=== PATIENT | male | born 1970 | race Caucasian/White ===

== ENCOUNTER 2017-06-21 11:50 | Inpatient (IN) | payer BC ==
[2017-06-21] MEDS ORDERED: NS 1,000 ML IV ONE (12:33)
[2017-06-21 12:36] LABS: PLATELET COUNT 181 10^3/uL (150-400)
--- NOTE | 2017-06-21 12:58 | EDPHY ---
H & P Time Seen by Provider: 06/21/17 12:41 HPI/ROS: CHIEF COMPLAINT: Nausea and vomiting HISTORY OF PRESENT ILLNESS: Patient is insulin-dependent diabetes and started getting sick yesterday with nausea and he vomited twice. His also said his eyes looked yellow yesterday. He only drinks occasional alcohol and had 2 drinks a week ago Saturday but nothing since. He presents with nausea and a feeling of his heart is racing. Not associated with severe abdominal pain but a little bit of cramping. No diarrhea. No fever. No hematemesis or coffee-ground emesis. REVIEW OF SYSTEMS: Eye: no change in vision ENT: no sore throat Cardiac: no chest pain or syncope Pulmonary: no cough or SOB Abdomen: HPI Musculoskeletal: no back pain Skin: HPI Neuro: no headache Constitutional: no fever : no urinary symptoms A comprehensive 10 point review of systems is otherwise negative aside from elements mentioned in the history of present illness. PAST MEDICAL HISTORY: Insulin-dependent diabetes Social history: Occasional alcohol only, General Appearance: Alert and conversant, cooperative. Eyes: Icteric ENT, Mouth: Dry mucous membranes Respiratory: Normal respiratory effort, breath sounds equal, lungs are clear to auscultation. Cardiovascular: Regular rate and rhythm. Tachycardic, 1/6 systolic murmur. Gastrointestinal: Abdomen is soft and non tender. Neurological: Alert, face symmetric, normal motor and sensory in extremities. Skin: Mild jaundice. Musculoskeletal: No peripheral edema. Psychiatric: Not agitated. Emergency Department course/MDM: Patient presents clinically dry and tachycardic with elevated glucose to 267 today. He also appears jaundiced, concern for liver disease. IV fluid resuscitation ordered 1 L, packed red blood cells 1 U ordered for severe anemia. Possible hemolysis with elevated bilirubin. Admission ICU with hematology consult. Does not appear to have ketoacidosis, does not have significant acidosis on PH. 1330:l discussed with Jamarcus, do not transfuse until he looks at the smear, possible hemolysis. 1342: [place] here, echo ordered. Smoking Status: Never smoked Constitutional: Initial Vital Signs Temperature (C) 36.7 C 06/21/17 11:52 Heart Rate 128 H 06/21/17 11:52 Respiratory Rate 16 06/21/17 11:52 Blood Pressure 153/92 H 06/21/17 11:52 O2 Sat (%) 99 06/21/17 11:52 O2 Delivery Mode Room Air Allergies/Adverse Reactions: Penicillins Allergy (Verified 06/21/17 13:32) Unknown Home Medications: Medication Instructions Recorded Atorvastatin Calcium [Lipitor 20 20 mg PO DAILY 06/21/17 mg (*)] Insulin Aspart [novoLOG] 0 - 14 unit SQ TIDMEAL 06/21/17 Insulin Glargine,Hum.rec.anlog 32 unit SQ HS 06/21/17 [Hortencia Ivonejillian] Medical Decision Making - Diagnostics EKG Interpretation: 12-lead EKG interpreted by me; official reading is in trace master. My interpretation is sinus tachycardia rate 125 Consult/Admit Bed Type: [facility] Critical Care Time: Critical care time spent by me, Dr. Bauer, exclusively with the care of this patient was 30 minutes, exclusive of PA or PERSONAL COMPUTER NETWORK ANALYST time and exclusive of separate procedures. The organ system at risk was hematologic and I ordered blood transfusion, fluid resuscitate patient, consultation with membership advisor, ICU admission to stabilize the patient and prevent worsening of the patient's condition. - Data Points Laboratory Results: Laboratory Results 06/21/17 12:25 06/21/17 12:25 06/21/17 06/21/17 06/21/17 13:05 12:25 12:25 WBC RBC Hgb POC Hgb Hct POC Hct MCV MCH MCHC RDW Plt Count MPV Neut % (Auto) Lymph % (Auto) Giles % (Auto) Eos % (Auto) Baso % (Auto) Nucleat RBC Rel Count Absolute Neuts (auto) Absolute Lymphs (auto) Absolute Monos (auto) Absolute Eos (auto) Absolute Basos (auto) Absolute Nucleated RBC Immature Gran % Immature Gran # Platelet Estimate Polychromasia Spherocytes Smear Review By Absolute Retic Percent Retic Corrected Retic Count PT 13.8 SEC SEC (12.0-15.0) INR 1.04 (0.83-1.16) APTT 22.9 SEC L SEC (23.0-38.0) VBG pH POC Sodium Sodium POC Potassium Potassium POC Chloride Chloride Carbon Dioxide Anion Gap POC BUN BUN Creatinine POC Creatinine Estimated GFR Glucose POC Glucose Calcium Total Bilirubin Conjugated Bilirubin Unconjugated Bilirubin AST ALT Alkaline Phosphatase Ammonia Lactate Dehydrogenase 1050 IU/L H IU/L (313-618) Total Protein Albumin Patient ABO/Rh A POSITIVE Antibody Screen POSITIVE Antibody Identification UNDETERMINED PRASHANTH, IgG Specific IGG POSITIVE (NEGATIVE) PRASHANTH, Polyspecific POSITIVE H (NEGATIVE) Crossmatch IS Only See Detail 06/21/17 06/21/17 06/21/17 12:25 12:25 12:25 WBC RBC Hgb POC Hgb Hct POC Hct MCV MCH MCHC RDW Plt Count MPV Neut % (Auto) Lymph % (Auto) Giles % (Auto) Eos % (Auto) Baso % (Auto) Nucleat RBC Rel Count Absolute Neuts (auto) Absolute Lymphs (auto) Absolute Monos (auto) Absolute Eos (auto) Absolute Basos (auto) Absolute Nucleated RBC Immature Gran % Immature Gran # Platelet Estimate Polychromasia Spherocytes Smear Review By Absolute Retic Percent Retic Corrected Retic Count PT INR APTT VBG pH 7.34 (7.31-7.42) POC Sodium Sodium 136 mEq/L mEq/L (135-145) POC Potassium Potassium 4.3 mEq/L mEq/L (3.5-5.2) POC Chloride Chloride 104 mEq/L mEq/L (97-110) Carbon Dioxide 19 mEq/l L mEq/l (22-31) Anion Gap 13 mEq/L mEq/L (8-16) POC BUN BUN 21 mg/dL mg/dL (7-23) Creatinine 0.8 mg/dL mg/dL (0.7-1.3) POC Creatinine Estimated GFR > 60 Glucose 272 mg/dL H mg/dL (70-100) POC Glucose Calcium 9.0 mg/dL mg/dL (8.5-10.4) Total Bilirubin 8.0 mg/dL H mg/dL (0.1-1.4) Conjugated Bilirubin 1.2 mg/dL H mg/dL (0.0-0.5) Unconjugated Bilirubin 6.8 mg/dL H mg/dL (0.0-1.1) AST 34 IU/L IU/L (17-59) ALT 46 IU/L IU/L (21-72) Alkaline Phosphatase 82 IU/L IU/L (38-126) Ammonia < 9.0 uMOL/L L uMOL/L (9.0-30.0) Lactate Dehydrogenase Total Protein 6.4 g/dL g/dL (6.3-8.2) Albumin 4.1 g/dL g/dL (3.5-5.0) Patient ABO/Rh Antibody Screen Antibody Identification PRASHANTH, IgG Specific PRASHANTH, Polyspecific Crossmatch IS Only 06/21/17 06/21/17 12:25 12:21 WBC 6.21 10^3/uL 10^3/uL (3.80-9.50) RBC 2.30 10^6/uL L 10^6/uL (4.40-6.38) Hgb 6.9 g/dL L g/dL (13.7-17.5) POC Hgb 6.8 gm/dL L gm/dL (13.7-17.5) Hct 20.6 % L % (40.0-51.0) POC Hct 20 % L % (40-51) MCV 89.6 fL fL (81.5-99.8) MCH 30.0 pg pg (27.9-34.1) MCHC 33.5 g/dL g/dL (32.4-36.7) RDW 13.1 % % (11.5-15.2) Plt Count 181 10^3/uL 10^3/uL (150-400) MPV 9.4 fL fL (8.7-11.7) Neut % (Auto) 80.9 % H % (39.3-74.2) Lymph % (Auto) 9.2 % L % (15.0-45.0) Giles % (Auto) 7.2 % % (4.5-13.0) Eos % (Auto) 1.0 % % (0.6-7.6) Baso % (Auto) 0.3 % % (0.3-1.7) Nucleat RBC Rel Count 0.0 % % (0.0-0.2) Absolute Neuts (auto) 5.02 10^3/uL 10^3/uL (1.70-6.50) Absolute Lymphs (auto) 0.57 10^3/uL L 10^3/uL (1.00-3.00) Absolute Monos (auto) 0.45 10^3/uL 10^3/uL (0.30-0.80) Absolute Eos (auto) 0.06 10^3/uL 10^3/uL (0.03-0.40) Absolute Basos (auto) 0.02 10^3/uL 10^3/uL (0.02-0.10) Absolute Nucleated RBC 0.00 10^3/uL 10^3/uL (0-0.01) Immature Gran % 1.4 % H % (0.0-1.1) Immature Gran # 0.09 10^3/uL 10^3/uL (0.00-0.10) Platelet Estimate Pending Polychromasia 2+ H Spherocytes 2+ H Smear Review By Tyron WANG MD Absolute Retic 0.128 10^6/uL H 10^6/uL (0.050-0.117) Percent Retic 5.41 % H % (0.98-2.67) Corrected Retic Count 2.5 % % (0.6-2.6) PT INR APTT VBG pH POC Sodium 136 mEq/L mEq/L (135-145) Sodium POC Potassium 4.0 mEq/L mEq/L (3.3-5.0) Potassium POC Chloride 102 mEq/L mEq/L (97-110) Chloride Carbon Dioxide Anion Gap POC BUN 22 mg/dL mg/dL (7-23) BUN Creatinine POC Creatinine 0.8 mg/dL mg/dL (0.7-1.3) Estimated GFR Glucose POC Glucose 283 mg/dL H mg/dL (70-100) Calcium Total Bilirubin Conjugated Bilirubin Unconjugated Bilirubin AST ALT Alkaline Phosphatase Ammonia Lactate Dehydrogenase Total Protein Albumin Patient ABO/Rh Antibody Screen Antibody Identification PRASHANTH, IgG Specific PRASHANTH, Polyspecific Crossmatch IS Only Medications Given: Discontinued Medications Sodium Chloride (Ns) 1,000 mls @ 0 mls/hr IV ONCE ONE PRN Reason: Wide Open Stop: 06/21/17 12:34 Last Admin: 06/21/17 12:34 Dose: 1,000 mls Point of Care Test Results: 06/21/17 12:21 POC Sodium 136 POC Potassium 4.0 POC Chloride 102 POC BUN 22 POC Creatinine 0.8 POC Glucose 283 H Departure - Departure Disposition: [facility] Acute Clinical Impression: Anemia Qualifiers: Anemia type: unspecified type Qualified Code(s): D64.9 - Anemia, unspecified Condition: Serious
--- NOTE | 2017-06-21 13:00 | CPEKG ---
Heart Rate: 125 RR Interval: 480 P-R Interval: 156 QRSD Interval: 78 QT Interval: 304 QTC Interval: 439 P [place]: 65 QRS [place]: -18 T Wave [place]: 83 EKG Severity - OTHERWISE NORMAL ECG - EKG Impression: SINUS TACHYCARDIA EKG Impression: BORDERLINE LEFT AXIS DEVIATION Electronically Signed By: Eduar Bauer 21-Jun-2017 12:59:57
[2017-06-21 13:21] LABS: INR 1.04 (0.83-1.16); PROTIME(PATIENT) 13.8 SEC (12.0-15.0)
[2017-06-21] MEDS ORDERED: ACETAMINOPHEN 325 MG TAB PO PRN (14:13)
[2017-06-21] MEDS ORDERED: ONDANSETRON DISINTEGRATING 4 MG TAB PO PRN (14:13)
[2017-06-21] MEDS ORDERED: ONDANSETRON 4 MG/2 ML VIAL IVP PRN (14:13)
[2017-06-21] MEDS ORDERED: D50W 25 GM/50 ML SYR IVP PRN (14:25)
--- NOTE | 2017-06-21 14:50 | GHP ---
[f rep st] HISTORY AND PHYSICAL DATE OF ADMISSION: 06/21/2017 CHIEF COMPLAINT: [place] poorly. HISTORY OF PRESENT ILLNESS: This is a 46-year-old man who presented to the emergency department because he was feeling poorly. He has a history only of insulin-dependent diabetes as well as hyperlipidemia. He notes that he noticed some dark urine likely Saturday. He had 1 episode of emesis yesterday. His noted that he looked yellow yesterday as well. He stayed home from work yesterday. This morning, he continued to feel somewhat poorly. However, attended some meetings by phone. Being Saturday, he decided to present to the emergency department. In the emergency department, he was found to have evidence of hemolysis. He notes that he has had no chest pain, has not changed any medications recently, does not use illegal drugs, has no history of anemia, has traveled recently to [facility], to [facility] last summer, but felt well since then. He notes that a friend of his that he was traveling with did get a "blood infection" and was in the hospital in [facility]. In reviewing his old labs, he was not anemic 8 years ago with a hemoglobin of 15. He has never had any renal problems. His diabetes has been relatively well controlled with his last A1c being 6.7% in our system last year. PAST MEDICAL/SURGICAL HISTORY: 1. Hyperlipidemia. 2. Diabetes mellitus. MEDICATIONS: Please see medication reconciliation. ALLERGIES: Penicillin. SOCIAL HISTORY: He does not drink or smoke. He does not use illegal drugs. FAMILY HISTORY: Reviewed and noncontributory. REVIEW OF SYSTEMS: 10-point review of systems is conducted and is negative except per HPI. PHYSICAL EXAM: VITAL SIGNS: Blood pressure 154/81, heart rate 129, respiration rate 18, saturating 99% on room air, temperature 36.9. GENERAL: The patient is a pleasant man who is resting comfortably, conversant, in no acute distress. HEENT: Shows him to have some scleral icterus. CARDIOVASCULAR : Shows him to be tachycardic. He has a systolic murmur. PULMONARY: Shows him to be clear to auscultation bilaterally. ABDOMEN: Soft, nontender, nondistended. SKIN: Shows him to be jaundiced. : Shows no [place]. NEUROLOGIC: Shows him to be alert and oriented x3. He is moving all extremities. PSYCHIATRIC: Shows normal mood and affect. LABS: Bicarb is 19. Otherwise, basic metabolic panel is normal. Glucose 272. Total bilirubin is 6.8, unconjugated bilirubin, remainder of his LFTs are normal. LDH is 1050. Hemoglobin is 6.9. MCV is 89.6. INR is 1.04. DATA: 1. I discussed this with Dr. Adams in the emergency department. 2. I reviewed his preliminary echocardiogram read. This shows an ascending aortic aneurysm 4.7 cm, likely bicuspid aortic valve. Did not appear calcified. 3. I personally reviewed and interpreted his EKG. This shows sinus tachycardia. He has mild ST depression in leads V3 through V6. IMPRESSION AND PLAN: A 46-year-old man with hemolysis. 1. Hemolysis: I note that he does have an abnormal aortic valve on preliminary echo read, although I am not sure this accounts for his acute hemolysis with significant tachycardia. I have ordered a disseminated intravascular coagulation panel as well as a Jonathan test to further evaluate. Hematology has already been consulted. He will need a transfusion at some point. However, would like to wait for hematology evaluation. 2. Tachycardia: This is due to his anemia. Will continue fluids while awaiting hematology evaluation as well as transfusion. 3. Diabetes mellitus. Will continue his long-acting insulin glargine 32 units h.s. Follow his blood sugars and start him on a sliding scale. 4. Hyperlipidemia: Lipitor. This is not a listed side effect of Lipitor. 5. Ascending aortic aneurysm, possible bicuspid aortic valve - will repeat limited echo tomorrow if less tachy. He will need follow-up for this. /[id number]/MODL MTDD
[2017-06-21] MEDS ORDERED: HAEMOPH B POLY CONJ TET TOX IM ONE (15:03)
[2017-06-21] MEDS ORDERED: MENINGOCOCCAL 4 MCG/0.5 ML VIAL (MENACTRA) IM ONE (15:03)
[2017-06-21] MEDS ORDERED: PNEUMOC 13-VAL CONJ-DIP CRM/PF 0.5 ML SYR IM ONE (15:03)
--- NOTE | 2017-06-21 15:03 | ECHO ---
[email or web address] [address] Main: [phone] Fax: Transthoracic Echocardiogram Name: MOISE TRACY MR#: [id number] Study Date: 06/21/2017 Study Time: 02:13 PM Date of : 1970 Age: 46 year(s) Height: 182.9 cm (72 in.) Weight: 83.92 kg (185 lb.) BSA: 2.06 m2 Gender: Male Examination: Echo Indication: Chest Pain Image Quality: Adequate Contrast: Requested by: Eduar Bauer BP: 154 mmHg/81 mmHg Heart Rate: 130 bpm Rhythm: Tachycardia Indication: Chest Pain Procedure Staff Order Entry Clerk: Bernie Minaya [facility] Reading Physician: Michael Jensen MD Requesting Provider: Conclusions: Global hypercontractility of the left ventricle. EF is 73 %. There is no significant mitral valve regurgitation. Mild aortic valve regurgitation is present. The aortic valve is possibly bicuspid; difficult to assess due to rapid heart rate. Trivial tricuspid valve regurgitation. Normal size aortic root measuring 2.9 cm. Moderately dilated ascending aorta measuring 4.7 cm. Measurements: Chambers Valvular Assessment AV/MV Valvular Assessment TV/PV Normal Normal Normal Name Value Range Name Value Range Name Value Range Ao Karine (MM): 2.9 cm (2.2 cm-3.7 AV Vmax: 3.14 m/s (1 m/s-1.7 PV Vmax: 1.51 m/s (0.6 m/s-0.9 cm) m/s) m/s) IVSd (2D): 1.1 cm (0.6 cm-1.1 AV maxP mmHg ( - ) PV PGmax: 9 mmHg ( - ) cm) AV meanP mmHg ( - ) LVDd (2D): 3.9 cm (4.2 cm-5.9 LVOT Vmax: 1.67 m/s (0.7 m/s-1.1 cm) m/s) LVDs (2D): 2.8 cm (2.1 cm-4 ANKIT (Vmax): 1.7 cm2 ( - ) cm) ANKIT (VTI): 1.6 cm ( - ) LVPWd (2D): 0.9 cm (0.6 cm-1 MV E Vmax: 0.96 m/s ( - ) cm) MV A Vmax: 1.43 m/s ( - ) LVOTd 2.0 cm 2.0 cm mm MV E/A: 0.67 ( - ) LVEF (MOD4): 73 % (>=55 %) MV maxP mmHg ( - ) RVDd(2D): 2.8 cm (1.9 cm-3.8 cmmm) MV meanP mmHg ( - ) MVA (Vmax): 3.7 m/s ( - ) Continued Measurements: Chambers Valvular Assessment AV/MV Patient: MOISE TRACY Study Date: 06/21/2017 Page 1 of 2 02:13 PM Name Value Name Value LADs Lon.0 cm MV VTI: 20.30 cm LA Area: 16.6 cm2 LA Volume: 43 ml LA Volume Index: 20.9 ml/m2 RA Area: 9.3 cm2 Additional Vessels Name Value Ao Ascendin.7 cm Findings: Left Ventricle: Normal size left ventricle. Borderline concentric LV hypertrophy. Global hypercontractility of the left ventricle. EF is 73 %. No regional wall motion abnormality. Unable to assess diastolic dysfunction. Right Ventricle: Normal size right ventricle. Normal RV function. Left Atrium: The left atrium is normal in size. Mitral Valve: The mitral valve is normal in appearance. There is no significant mitral valve regurgitation. No mitral stenosis is present. Aortic Valve: Mild aortic valve regurgitation is present. Mean aortic valve gradient 23. The aortic valve is possibly bicuspid; difficult to assess due to rapid heart rate. Tricuspid Valve: The tricuspid valve is normal in appearance and function. Trivial tricuspid valve regurgitation. Pulmonary artery pressure is not obtained due to inadequate TR jet. Pulmonic Valve: The pulmonic valve is normal in appearance and function. There is no pulmonic regurgitation seen. Aorta: Normal size aortic root measuring 2.9 cm. Moderately dilated ascending aorta measuring 4.7 cm. IVC: The IVC is normal sized. Pericardium: No pericardial effusion. (No Signature Object) Patient: MOISE TRACY Study Date: 06/21/2017 Page 2 of 2 02:13 PM [id number]
--- NOTE | 2017-06-21 15:22 | PDMN ---
Medical Necessity Medical necessity: Patient meets inpatient criteria per physician note and MCG M -35 Anemia, Iron Deficiency or Unspecified (H and H 6.8 and 20; ongoing tachycardia, [id number], after initial IV hydration; hx of IDDM with N/V since yesterday; total bili 8.0; BG 283; likely bicuspid aortic valve w/ascending thoracic aortic aneurysm; anticipated LOS for hematology consult/checking for active hemolysis, IV hydration and pending transfusion, further eval and treatment.)
[2017-06-21] MEDS: predniSONE 20 MG TAB PO SCH (15:53)
[2017-06-21 16:04] LABS: INR 1.13 (0.83-1.16); PLATELET COUNT 202 10^3/uL (150-400); PROTIME(PATIENT) 14.7 SEC (12.0-15.0)
[2017-06-21] MEDS: NS 1,000 ML IV SCH ×2 (16:17→23:11)
--- NOTE | 2017-06-21 16:25 | GCON ---
[f rep st] CONSULTATION HEMATOLOGY CONSULTATION. DATE OF CONSULTATION: 06/21/2017 REFERRING PHYSICIAN: Moose Mendez MD REASON FOR CONSULTATION: Acute anemia. HISTORY OF PRESENT ILLNESS: Billy is an otherwise healthy 46-year-old gentleman with diabetes. He was in his normal state of health up until Saturday when he noticed his urine turned dark. He felt f ine on Saturday and went to work. On , he felt nauseated and vomited once, may have had a f ever of 101. He stayed home from work. He hydrated. Did not have any other problems, was able to t he eat. However, his noticed that he seemed to be "yellow." This morning he noticed his blood sugar was running high. He checked his urine for ketones and they were high. He tried to call his i nternist, but she was out, so he came to the ER to get checked out. While here, blood sugar is a lit tle high, but he is not in significant acidosis, but his hemoglobin was 6.9 with an elevated bilirubi n. He is being admitted for evaluation. Prior to this, he has not had any fever or recent infection s. He denies any constitutional symptoms. ALLERGIES: Penicillin. HOME MEDICATIONS: Include NovoLog, insulin, Toujeo, SoloSTAR insulin and atorvastatin. CHRONIC ILLNESSES: Include type 1 diabetes. SURGICAL HISTORY: Unremarkable. SOCIAL HISTORY: Drinks occasional alcohol. Quit smoking 25 years ago, but had secondhand smoke expo sure as a child. He is . 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 FAMILY HISTORY: Mother is alive, age 86, some memory problems. Father of lung cancer. He has 1 living sister. He has 1 daughter, age 12, in good health. REVIEW OF SYSTEMS: 10-point review of systems performed. Pertinent positives as per HPI, otherwise negative. PHYSICAL EXAM: VITAL SIGNS: Temperature is 36.9, pulse 129, blood pressure is 154/81. GENERAL: He is well-appearing, in no distress. HEENT: Sclerae are icteric. Oral mucosa is unremarkable. Extr aocular muscles are intact. Pupils equal, round, react to light. LUNGS: Clear. CARDIAC: Tachycar dic, but regular with a 2/6 systolic murmur. ABDOMEN: Soft, nontender, without hepatosplenomegaly. MATTY EXAM: Reveals no peripheral lymphadenopathy. SKIN: Shows he is jaundiced. NEURO: Grossly intact. LABS: White count 6200 with a normal differential. Hemoglobin is 6.9 g/dL, platelet count is 181,00 0. Retake is corrected to a little bit higher at 2.5%. Chemistry: LDH is high at 1000. Bilirubin is 8, almost all of it unconjugated at 6.8. Other LFTs and chemistries are unremarkable. Electrocardiogram showed just sinus tachycardia. Bank testing shows that he does have IgG positive Jonathan test. IMPRESSION: 1. 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 2. Type 2 diabetes. RECOMMENDATIONS: I recommend holding off a transfusion, although he is tachycardic. Recommend hydra ting him and controlling his blood sugar. Typically with hemolytic anemia, we treat it with the ster oids. Low-dose rituximab has also been used along with steroids, usually at actually relatively lowe r dose 100 mg weekly for 4 weeks along with a short course of prednisone 1 mg/kg per day for 30 days and a slow taper after that. I think we can start today with glucocorticoids and then perhaps tomorr ow consider adding rituximab at 100 mg. Also before giving rituximab, I would like to see if we can immunize him with Pneumovax, Haemophilus, and meningococcus in case he needs his spleen taken out in the future. We will follow along with you while he is in the hospital. /[id number]/MODL
[2017-06-21 16:43] LABS: HEPATITIS B SURFACE ANTIGEN NEGATIVE (NEGATIVE)
[2017-06-21 16:48] LABS: HEPATITIS B CORE AB IGM NEGATIVE (NEGATIVE)
[2017-06-21 17:00] LABS: HEPATITIS C ANTIBODY TOTAL NEGATIVE (NEGATIVE); HIV TYPE 1 AND 2 NEGATIVE (NEGATIVE)
[2017-06-21] MEDS: INSULIN LISPRO 100 UNIT/ML SC SCH (17:26)
[2017-06-21 20:58] LABS: PLATELET COUNT 211 10^3/uL (150-400)
[2017-06-21] MEDS ORDERED: INSULIN GLARGINE HUM REC ANLOG 32 UNIT SQ SCH (21:00)
[2017-06-21] MEDS: INSULIN GLARGINE 100 UNITS/ML UNIT SC SCH (21:32)
[2017-06-21] MEDS ORDERED: INSULIN LISPRO 100 UNIT/ML SC ONE (23:03)
[2017-06-22 00:22] LABS: PLATELET COUNT 238 10^3/uL (150-400)
[2017-06-22 04:38] LABS: PLATELET COUNT 201 10^3/uL (150-400)
[2017-06-22] MEDS: INSULIN LISPRO 100 UNIT/ML SC SCH ×5 (08:07→18:08)
[2017-06-22] MEDS: ATORVASTATIN CALCIUM 20 MG TAB PO SCH (08:16)
[2017-06-22] MEDS: predniSONE 20 MG TAB PO SCH (08:16)
[2017-06-22] MEDS ORDERED: DEXAMETHASONE 10 MG/ML VIAL IVP PRN (10:57)
[2017-06-22] MEDS ORDERED: MEPERIDINE 25 MG/ML SYR IVP PRN (10:57)
[2017-06-22] MEDS ORDERED: ACETAMINOPHEN 325 MG TAB PO PRN (10:57)
[2017-06-22] MEDS ORDERED: NS 500 ML IV PRN (10:57)
[2017-06-22] MEDS ORDERED: NS 1,000 ML IV PRN (10:57)
[2017-06-22] MEDS ORDERED: ACETAMINOPHEN 325 MG TAB PO SCH (10:57)
[2017-06-22] MEDS ORDERED: HYDROCORTISONE 100 MG/2 ML VIAL IVP PRN (10:57)
--- NOTE | 2017-06-22 11:09 | SOAPPROG ---
SOAP Progress Note Assessment/Plan: Assessment: 1. Warm mediated hemolytic anemia 2. Diabetes Plan:Continue prednisone at 60 mg daily, will add Rituxan 100mg iv today, plan on weekly times 4, follow hgb, retic count, hold txn for now. Potential side effects including infusion rxn discussed with pt 06/22/17 11:06 06/22/17 11:09 Subjective: Feels ok Objective: Vital Signs Temp Pulse Resp BP Pulse Ox 98 F 105 H 19 141/69 H 99 06/22/17 08:00 06/22/17 08:00 06/22/17 08:00 06/22/17 08:00 06/22/17 08:00 Laboratory Results 06/22/17 04:15 06/22/17 04:15 06/21/17 06/22/17 06/23/17 05:59 05:59 05:59 Intake Total 5918 Output Total 1000 Balance 4918 PT 14.7 SEC (12.0-15.0) 06/21/17 15:30 INR 1.13 (0.83-1.16) 06/21/17 15:30 Physical Exam - Physical Exam General Appearance: alert, other (pale) Respiratory: lungs clear, normal breath sounds Cardiac/Chest: tachycardia Abdomen: normal bowel sounds, non-tender Lymphatic: no adenopathy ICD10 Worksheet Patient Problems: Problems Problem Status Onset Anemia Acute
--- NOTE | 2017-06-22 11:09 | HOSPPROG ---
Hospitalist Progress Note Assessment/Plan: # hemolysis, likely AIHA - prednisone, rituxan per heme - immunized, may need splenectomy # acute anemia d/t above with tachycardia # TAA, 4.7cm and possibly bicuspid AV - repeat echo when less tachy - CTA to eval when more stable # DM2 with hyperglycemia, steroids - incr glargine -> - add lispro 5U pre-meals - cont SSI lispro # Subjective: still tachy overnight; no CP Objective: Vital Signs Temp Pulse Resp BP Pulse Ox 36.6 C 105 H 19 141/69 H 99 06/22/17 08:00 06/22/17 08:00 06/22/17 08:00 06/22/17 08:00 06/22/17 08:00 Laboratory Results 06/22/17 04:15 06/22/17 04:15 06/21/17 06/22/17 06/23/17 05:59 05:59 05:59 Intake Total 5918 Output Total 1000 Balance 4918 PT 14.7 SEC (12.0-15.0) 06/21/17 15:30 INR 1.13 (0.83-1.16) 06/21/17 15:[address] Roxy PEÑA and echo reviewed - Physical Exam Constitutional: no apparent distress, appears nourished Eyes: icteric sclera Cardiovascular: systolic murmur, tachycardia Respiratory: no respiratory distress, no rales or rhonchi Gastrointestinal: soft, non-tender abdomen, no palpable masses ICD10 Worksheet Patient Problems: Problems Problem Status Onset Anemia Acute
[2017-06-22] MEDS ORDERED: INSULIN GLARGINE 100 UNITS/ML UNIT SC SCH (11:15)
[2017-06-22] MEDS ORDERED: RITUXIMAB IV ONE (12:00)
[2017-06-22] MEDS ORDERED: NS IV ONE (12:00)
[2017-06-22] MEDS: INSULIN GLARGINE 100 UNITS/ML UNIT SC SCH ×2 (12:05→21:37)
--- NOTE | 2017-06-22 15:11 | ASMTCMCOM ---
CM Note CM Note Notes: Pt was admitted with autoimmune hemolytic anemia. Hx DM2. Oncology following. Current plan of care is steroids, hydration, and controlling blood sugar. No transfusion planned at this time. Pt transferred from ICU to . Pt's and lives in [place]. CM will follow for any d/c needs. Date Signed: 06/22/2017 03:10 PM Electronically Signed By:REANNA Mascorro
[2017-06-23] MEDS: ATORVASTATIN CALCIUM 20 MG TAB PO SCH (08:01)
[2017-06-23] MEDS: predniSONE 20 MG TAB PO SCH (08:01)
[2017-06-23] MEDS: INSULIN LISPRO 100 UNIT/ML SC SCH ×6 (08:04→17:42)
[2017-06-23] MEDS: INSULIN GLARGINE 100 UNITS/ML UNIT SC SCH (08:30)
[2017-06-23] MEDS ORDERED: INSULIN GLARGINE 100 UNITS/ML UNIT SC SCH ×3 (09:17→21:00)
--- NOTE | 2017-06-23 10:01 | SOAPPROG ---
SOAP Progress Note Assessment/Plan: Assessment: 1. Warm mediated hemolytic anemia. hgb stable 2. Diabetes Plan:Continue prednisone at 60 mg daily, received Rituxan 100mg iv today, plan on weekly times 4, follow hgb, retic count, hold txn for now. 06/22/17 11:06 06/22/17 11:09 06/23/17 09:58 Subjective: Feels ok Objective: Vital Signs Temp Pulse Resp BP Pulse Ox 98.3 F 99 15 101/66 96 06/23/17 07:28 06/23/17 07:28 06/23/17 07:28 06/23/17 07:28 06/23/17 07:28 Laboratory Results 06/23/17 04:19 06/22/17 04:15 06/22/17 06/23/17 06/24/17 05:59 05:59 05:59 Intake Total 5918 2349 400 Output Total 1000 250 300 Balance 4918 2099 100 PT 14.7 SEC (12.0-15.0) 06/21/17 15:30 INR 1.13 (0.83-1.16) 06/21/17 15:30 Physical Exam - Physical Exam General Appearance: alert, no apparent distress, other (pale) Respiratory: lungs clear, normal breath sounds Cardiac/Chest: tachycardia Abdomen: normal bowel sounds, non-tender ICD10 Worksheet Patient Problems: Problems Problem Status Onset Anemia Acute
--- NOTE | 2017-06-23 11:00 | HOSPPROG ---
Hospitalist Progress Note Assessment/Plan: # hemolysis, likely warm AIHA - prednisone 60 QD, rituxan QWeek per heme - immunized, may need splenectomy # acute anemia d/t above with tachycardia # TAA, 4.7cm and possibly bicuspid AV - repeat echo when less tachy - consider CTA prior to dc # DM2 with hyperglycemia, steroids - glargine 35 HS; add nph 10 with pred today - lispro 5U + SSI Subjective: no acute events; no CP Objective: Vital Signs Temp Pulse Resp BP Pulse Ox 36.8 C 99 15 101/66 96 06/23/17 07:28 06/23/17 07:28 06/23/17 07:28 06/23/17 07:28 06/23/17 07:28 Laboratory Results 06/23/17 04:19 06/22/17 04:15 06/22/17 06/23/17 06/24/17 05:59 05:59 05:59 Intake Total 5918 2349 400 Output Total 1000 250 300 Balance 4918 2099 100 PT 14.7 SEC (12.0-15.0) 06/21/17 15:30 INR 1.13 (0.83-1.16) 06/21/17 15:30 - Physical Exam Constitutional: no apparent distress Eyes: icteric sclera Ears, Nose, Mouth, Throat: hearing normal Cardiovascular: tachycardia Respiratory: no respiratory distress Gastrointestinal: No distension Genitourinary: No moe in urethra Skin: warm (jaundiced) Musculoskeletal: full muscle strength Neurologic: AAOx3 Psychiatric: interacting appropriately ICD10 Worksheet Patient Problems: Problems Problem Status Onset Anemia Acute
[2017-06-23] MEDS: INSULIN NPH HUMAN 100 UNITS/ML SYR SC SCH (11:43)
[2017-06-23] MEDS: FOLIC ACID 1 MG TAB PO SCH (13:30)
[2017-06-24 05:01] LABS: PLATELET COUNT 231 10^3/uL (150-400)
[2017-06-24] MEDS: INSULIN NPH HUMAN 100 UNITS/ML SYR SC SCH (08:24)
[2017-06-24] MEDS: predniSONE 20 MG TAB PO SCH (08:24)
[2017-06-24] MEDS: INSULIN LISPRO 100 UNIT/ML SC SCH ×5 (08:24→18:28)
--- NOTE | 2017-06-24 08:30 | HOSPPROG ---
Hospitalist Progress Note Assessment/Plan: #Warm-mediated hemolytic anemia -pred 60mg, Rituxan 06/22. Hold off on transfusion #Diabetes with hyperglycemia -low this afternoon. Hold scheduled and stop NPH. Will recalculate needs base on SSI lispro. May need to adjust evening glargine -serial fingerstick this afternoon #Hyberbilirubinemia: due to above. Now 1.8 #Diet: regular #Disp: cont inpatient admission for serial labs. Hope to DC in next 1-2 days if Hb improves. Discussed case with Dr. Chen Subjective: no chest pain or SOB. Mild dizziness if stands too quickly Objective: Vital Signs Temp Pulse Resp BP Pulse Ox 36.8 C 104 H 16 127/71 H 96 06/24/17 07:42 06/24/17 07:42 06/24/17 07:42 06/24/17 07:42 06/24/17 07:42 Laboratory Results 06/24/17 04:15 06/24/17 04:15 06/23/17 06/24/17 06/25/17 05:59 05:59 05:59 Intake Total 2349 2150 Output Total 250 800 Balance 2099 1350 PT 14.7 SEC (12.0-15.0) 06/21/17 15:30 INR 1.13 (0.83-1.16) 06/21/17 15:30 - Physical Exam Constitutional: no apparent distress, other (pale) Eyes: PERRL Ears, Nose, Mouth, Throat: moist mucous membranes Cardiovascular: regular rate and rhythym Respiratory: no respiratory distress Gastrointestinal: normoactive bowel sounds Genitourinary: no bladder fullness Skin: warm Musculoskeletal: full muscle strength Neurologic: AAOx3, CN II-XII Intact Psychiatric: interacting appropriately ICD10 Worksheet Patient Problems: Problems Problem Status Onset Anemia Acute
[2017-06-24] MEDS ORDERED: INSULIN NPH HUMAN 100 UNITS/ML SYR SC SCH (09:00)
--- NOTE | 2017-06-24 09:01 | SOAPPROG ---
SOAP Progress Note Assessment/Plan: Assessment/Plan: 46 yo man w DM who presented w autoimmune hemolytic anemia, warm mediated 1. Hemolytic anemia - hgb stable Bili has fallen dramatically on pred 60mg daily and given 1st dose Rituxan on 06/22/2017 holding off on transfusion for now hoping Hgb slowly improved so we can d/c for outpt follow up spleen enlarged on US, has been immunized Quantitative immunoglobulins, SPEP, GENET pending 2. DM - per IM 06/24/17 09:01 Subjective: No acute events feeling tired some SON on exertion Objective: Vital Signs Temp Pulse Resp BP Pulse Ox 36.8 C 104 H 16 127/71 H 96 06/24/17 07:42 06/24/17 07:42 06/24/17 07:42 06/24/17 07:42 06/24/17 07:42 Laboratory Results 06/24/17 04:15 06/24/17 04:15 06/23/17 06/24/17 06/25/17 05:59 05:59 05:59 Intake Total 2349 2150 Output Total 250 800 Balance 2099 1350 PT 14.7 SEC (12.0-15.0) 06/21/17 15:30 INR 1.13 (0.83-1.16) 06/21/17 15:30 Gen - NAD HEENT - very mild icterus CV - tachy, systolic murmur noted Resp - CTAB Abd - spleen tip palpated Ext - no edema ICD10 Worksheet Patient Problems: Problems Problem Status Onset Anemia Acute
[2017-06-24] MEDS: FOLIC ACID 1 MG TAB PO SCH (09:21)
[2017-06-24] MEDS: ATORVASTATIN CALCIUM 20 MG TAB PO SCH (09:21)
[2017-06-24] MEDS ORDERED: INSULIN GLARGINE 100 UNITS/ML UNIT SC SCH ×2 (21:00)
[2017-06-25] MEDS: INSULIN LISPRO 100 UNIT/ML SC SCH ×2 (07:37→12:26)
[2017-06-25] MEDS: ATORVASTATIN CALCIUM 20 MG TAB PO SCH (10:04)
[2017-06-25] MEDS: FOLIC ACID 1 MG TAB PO SCH (10:04)
[2017-06-25] MEDS: predniSONE 20 MG TAB PO SCH (10:04)
[2017-06-25 11:17] VITALS: BP 119/74; PULSE 106; RESP 16; TEMP 98.4; O2SAT 95
[2017-06-25] MEDS ORDERED: INSULIN LISPRO 100 UNIT/ML SC SCH ×2 (12:00)
--- NOTE | 2017-06-25 12:37 | SOAPPROG ---
[facility] Progress Note Assessment/Plan: Assessment/Plan: 46 yo man w DM who presented w autoimmune hemolytic anemia, warm mediated 1. Hemolytic anemia - hgb stable and slowly increasing Bili has fallen dramatically on pred 60mg daily and given 1st dose Rituxan on 06/22/2017 holding off on transfusion for now spleen enlarged on US, has been immunized Quantitative immunoglobulins ok, SPEP pending, GENET screen negative 2. DM - per IM OK to d/c home today w follow up saturday - will need CBC and next dose of Rituxan 06/24/17 09:01 06/25/17 12:35 Subjective: No acute events feeling ok still w fatigue but better Objective: Vital Signs Temp Pulse Resp BP Pulse Ox 36.9 C 106 H 16 119/74 95 06/25/17 11:17 06/25/17 11:17 06/25/17 11:17 06/25/17 11:17 06/25/17 11:17 Laboratory Results 06/25/17 05:10 06/25/17 05:10 06/24/17 06/25/17 06/26/17 05:59 05:59 05:59 Intake Total 2150 2620 Output Total 800 Balance 1350 2620 PT 14.7 SEC (12.0-15.0) 06/21/17 15:30 INR 1.13 (0.83-1.16) 06/21/17 15:30 Gen - NAD CV - systolic murmur noted LE - no edema ICD10 Worksheet Patient Problems: Problems Problem Status Onset Anemia Acute
--- NOTE | 2017-06-25 12:59 | GDS ---
[f rep st] DISCHARGE SUMMARY DISCHARGE DIAGNOSIS: 1. Warm mediated hemolytic anemia. 2. Diabetes with hyperglycemia. 3. Hyperbilirubinemia. HISTORY OF PRESENT ILLNESS: This is a 46-year-old male with history of insulin-dependent diabetes, h yperlipidemia, who presented to the ER with feeling poorly. He noticed dark urine last week and 1 ep isode of emesis. His noted that he looked yellow. He denied chest pain, but some shortness of breath with exertion. HOSPITAL COURSE: 1. Autoimmune hemolytic anemia, warm mediated: H and H is trending up. He will continue prednisone 60 mg daily for 30 days. He received Rituxan on 06/22/2017, likely 2nd dose this Saturday. He will fo llow up with Dr. Ricketts. Does not warrant transfusion at this point. 2. Diabetes with hyperglycemia: This is compounded by prednisone. Patient may resume his home david men. 3. Hyperbilirubinemia, 8 at admission, has trended down to 1.9. We will continue to monitor outpati ent. DISPOSITION: Patient is stable for discharge home. NEW MEDICATIONS: Prednisone 60 mg daily. FOLLOWUP: Dr. Ricketts, June 28, 2017. PHYSICAL EXAMINATION: VITAL SIGNS: Today, temperature 36.9 ,blood pressure 119/74, heart rate is 50 s to 90s, respirations 16, 95% on room air. GENERAL: Pale, no acute distress. HEENT: PERRLA. EOMI. Oropharynx clear. CARDIOVASCULAR: Regular rate and rhythm. Positive flow murmur. LUNGS: Clear. No crackles or wheezing. ABDOMEN: Soft, nontender, nondistended. Positive bowel sounds. GENITOU RINARY: No Escobedo. MUSCULOSKELETAL: 5/5 upper and lower extremity strength. NEUROLOGIC: 2 through 1 2 intact. PSYCHIATRIC: Alert and oriented x3. /[id number]/MODL
--- NOTE | 2017-06-25 13:22 | ASMTLACE ---
LACE Length of stay for Answers: 4-6 days current admission Acuity / Level of Answers: Yes Care: Did the patient have an inpatient admission? Comorbidities - select Answers: Other Notes: anemia all that apply # of Emergency department Answers: 1-2 visits in the last 6 months Score: 9 Date Signed: 06/25/2017 01:21 PM Electronically Signed By:Deborah Scott RN
--- NOTE | 2017-06-25 13:24 | ASMTCMCOM ---
CM Note CM Note Notes: Patient chart reviewed. No needs identified at this time. For discharge today home independent with family support. CM available should needs arise. Date Signed: 06/25/2017 01:23 PM Electronically Signed By:Deborah Scott RN
== END 2017-06-25 13:37 | disposition home or self-care (01) | DRG 810 ==
LOC: F2N 15:10 → F1N 06-22 13:55
PROVIDERS: ADMIT Student in an Organized Health Care Education/Training Program; ATTEND Student in an Organized Health Care Education/Training Program
DX: D59.1 Other autoimmune hemolytic anemias (principal); E11.65 Type 2 diabetes mellitus with hyperglycemia; E78.5 Hyperlipidemia, unspecified; I71.4 Abdominal aortic aneurysm, without rupture; Z79.4 Long term (current) use of insulin; Z87.891 Personal history of nicotine dependence
CPT/HCPCS: 82784-90; 82947-QW; 86334-90; 86705-90; 86860-90; 86870-90; 86905-90; 86922-90; 86978-90; G0009; G0472; J1200; J1815; J7512; J9310